=== PATIENT | female | born 1965 | race Caucasian/White ===

== ENCOUNTER 2016-07-18 09:26 | Emergency (ER) | payer SELFPAY ==
[2016-07-18 10:25] LABS: HEMOGLOBIN 12.9 gm/dl (12.3-15.3); RED BLOOD COUNT 4.37 M/UL (4.00-5.10); WHITE BLOOD COUNT 11.8 K/UL (4.5-11.0)
== END 2016-07-18 16:35 | disposition home or self-care (01) ==
LOC: ER1 09:26
PROVIDERS: Emergency Medicine
DX: N20.1 Calculus of ureter (principal); F17.200 Nicotine dependence, unspecified, uncomplicated
CPT/HCPCS: 36415; 80053; 81001; 83690; 84484; 84703; 85025; 87086; 93005; 96361; 96365; 96375; 99284; J0696; J2270; J2405; J7030; J7050

== ENCOUNTER → 2016-08-01 | Outpatient (CLI) | payer BC | LOC: RAD 12:48 | DX: N20.1 Calculus of ureter (principal); K59.00 Constipation, unspecified | CPT/HCPCS: 74000 ==

== ENCOUNTER → 2021-04-05 | Outpatient (CLI) | payer BC ==
[2021-04-05 17:08] LABS: HEMOGLOBIN 13.9 gm/dl (12.3-15.3); RED BLOOD COUNT 4.59 M/UL (4.00-5.10); WHITE BLOOD COUNT 8.7 K/UL (4.5-11.0)
[2021-04-05 17:29] LABS: BUN/CREATININE RATIO 23 (0-10)
== END ==
LOC: RAD 16:29
PROVIDERS: Family Medicine
DX: I10 Essential (primary) hypertension (principal); R53.83 Other fatigue; E55.9 Vitamin D deficiency, unspecified
CPT/HCPCS: 36415; 73030; 80053; 80061; 82607; 84443; 85027

== ENCOUNTER → 2021-04-15 | Outpatient (CLI) | payer BC | LOC: MAMO 08:52 | DX: Z12.31 Encounter for screening mammogram for malignant neoplasm of breast (principal); R79.89 Other specified abnormal findings of blood chemistry; K76.0 Fatty (change of) liver, not elsewhere classified | CPT/HCPCS: 76700; 77063; 77067 ==

== ENCOUNTER → 2021-08-26 | Outpatient (CLI) | payer BC ==
[2021-08-27 15:13] LABS: LIVER-KIDNEY MICROSOMAL AB 1.2 Units (0.0-20.0)
== END ==
LOC: LAB 12:49
PROVIDERS: Internal Medicine Gastroenterology
DX: R79.89 Other specified abnormal findings of blood chemistry (principal)
CPT/HCPCS: 36415; 82784; 83516; 86376